=== PATIENT | female | born 1945 | race Caucasian/White ===

== ENCOUNTER 2017-01-26 18:09 | Inpatient (IN) | payer MEDICARE, OTHER ==
[~2017-01-26] VITALS: Ht 152.4 cm; Wt 139.8 kg
[2017-01-26 20:07] LABS: HEMOGLOBIN 16.7 gm/dl (12.3-15.3); RED BLOOD COUNT 6.61 M/UL (4.00-5.10); WHITE BLOOD COUNT 13.8 K/UL (4.5-11.0)
[2017-01-27] MEDS ORDERED: LASIX40 MG PO (04:04)
[2017-01-27] MEDS ORDERED: K-DUR TAB 20 M20 MEQ PO (04:05)
[2017-01-27] MEDS ORDERED: VERELAN180 MG PO (04:06)
[2017-01-27] MEDS ORDERED: VERELAN240 MG PO (04:06)
[2017-01-27] MEDS ORDERED: LANOXIN TAB0.125 MG PO (04:07)
[2017-01-27] MEDS ORDERED: ADVAIR 500-501 EACH INH (04:08)
[2017-01-27] MEDS ORDERED: PROVENTIL HFA 61 INH INH (04:09)
[2017-01-27 08:34] LABS: RED BLOOD COUNT 6.32 M/UL (4.00-5.10); WHITE BLOOD COUNT 14.3 K/UL (4.5-11.0)
[2017-01-28 04:30] LABS: HEMOGLOBIN 16.7 gm/dl (12.3-15.3); RED BLOOD COUNT 6.7 M/UL (4.00-5.10)
[2017-01-28 04:31] LABS: WHITE BLOOD COUNT 10.6 K/UL (4.5-11.0)
[2017-01-29 05:26] LABS: HEMOGLOBIN 16.9 gm/dl (12.3-15.3); RED BLOOD COUNT 6.61 M/UL (4.00-5.10); WHITE BLOOD COUNT 12.1 K/UL (4.5-11.0)
[2017-01-29 18:18] LABS: HEMOGLOBIN 16.5 gm/dl (12.3-15.3); RED BLOOD COUNT 6.55 M/UL (4.00-5.10); WHITE BLOOD COUNT 12.3 K/UL (4.5-11.0)
[2017-01-29 18:42] LABS: BUN/CREATININE RATIO 74 (0-10)
[2017-01-30 04:26] LABS: HEMOGLOBIN 15.2 gm/dl (12.3-15.3); RED BLOOD COUNT 6.25 M/UL (4.00-5.10)
[2017-01-30 04:27] LABS: WHITE BLOOD COUNT 7.9 K/UL (4.5-11.0)
[2017-01-30 04:33] LABS: BUN/CREATININE RATIO 85 (0-10)
[2017-01-30 10:36] LABS: BUN/CREATININE RATIO 80 (0-10)
[2017-01-30 10:38] LABS: HEMOGLOBIN 15.9 gm/dl (12.3-15.3); RED BLOOD COUNT 6.3 M/UL (4.00-5.10)
[2017-01-31 04:33] LABS: HEMOGLOBIN 15.6 gm/dl (12.3-15.3); RED BLOOD COUNT 6.34 M/UL (4.00-5.10)
[2017-01-31 04:36] LABS: BUN/CREATININE RATIO 82 (0-10)
[2017-02-01 04:56] LABS: HEMOGLOBIN 15.4 gm/dl (12.3-15.3); RED BLOOD COUNT 6.21 M/UL (4.00-5.10); WHITE BLOOD COUNT 14.2 K/UL (4.5-11.0)
[2017-02-01 05:08] LABS: BUN/CREATININE RATIO 115 (0-10)
== END 2017-02-01 11:00 | disposition short-term general hospital (02) | DRG 242 ==
LOC: ER1 18:09 → ZEROF 01-27 00:26 → CCU 01-27 00:26
PROVIDERS: Emergency Medicine; Hospitalist; Internal Medicine; Internal Medicine Cardiovascular Disease; Internal Medicine Hematology & Oncology; Internal Medicine Pulmonary Disease; Student in an Organized Health Care Education/Training Program; ADMIT Internal Medicine
PROC: 02HK3JZ Insertion of Pacemaker Lead into Right Ventricle, Percutaneous Approach (ICD-10-PCS; principal; 2017-01-29)
PROC: 0JH604Z Insertion of Pacemaker, Single Chamber into Chest Subcutaneous Tissue and Fascia, Open Approach (ICD-10-PCS; principal; 2017-01-29)
PROC: 0BH17EZ Insertion of Endotracheal Airway into Trachea, Via Natural or Artificial Opening (ICD-10-PCS; 2017-01-29)
PROC: 0BH17EZ Insertion of Endotracheal Airway into Trachea, Via Natural or Artificial Opening (ICD-10-PCS; 2017-01-31)
PROC: 5A1945Z Respiratory Ventilation, 24-96 Consecutive Hours (ICD-10-PCS; 2017-01-31)
DX: I13.0 Hypertensive heart and chronic kidney disease with heart failure and stage 1 through stage 4 chronic kidney disease, or unspecified chronic kidney disease (principal); G93.40 Encephalopathy, unspecified; J96.22 Acute and chronic respiratory failure with hypercapnia; J96.21 Acute and chronic respiratory failure with hypoxia; I50.33 Acute on chronic diastolic (congestive) heart failure; G93.6 Cerebral edema; N17.9 Acute kidney failure, unspecified; I44.2 Atrioventricular block, complete; E87.2 Acidosis; E87.1 Hypo-osmolality and hyponatremia; I47.1 Supraventricular tachycardia; I62.9 Nontraumatic intracranial hemorrhage, unspecified; R18.8 Other ascites; J98.11 Atelectasis; G81.92 Hemiplegia, unspecified affecting left dominant side; Z68.44 Body mass index [BMI] 60.0-69.9, adult; R53.1 Weakness; J45.909 Unspecified asthma, uncomplicated; G47.33 Obstructive sleep apnea (adult) (pediatric); I25.10 Atherosclerotic heart disease of native coronary artery without angina pectoris; E11.22 Type 2 diabetes mellitus with diabetic chronic kidney disease; E66.01 Morbid (severe) obesity due to excess calories; I48.0 Paroxysmal atrial fibrillation; J44.9 Chronic obstructive pulmonary disease, unspecified; E03.9 Hypothyroidism, unspecified; I49.5 Sick sinus syndrome; D75.1 Secondary polycythemia; T50.2X5A Adverse effect of carbonic-anhydrase inhibitors, benzothiadiazides and other diuretics, initial encounter; N18.2 Chronic kidney disease, stage 2 (mild); I27.2 Other secondary pulmonary hypertension; E87.5 Hyperkalemia; I07.1 Rheumatic tricuspid insufficiency; R26.89 Other abnormalities of gait and mobility; Z86.73 Personal history of transient ischemic attack (TIA), and cerebral infarction without residual deficits; Z79.899 Other long term (current) drug therapy; K76.0 Fatty (change of) liver, not elsewhere classified; K74.60 Unspecified cirrhosis of liver; D75.82 Heparin induced thrombocytopenia (HIT); Z88.1 Allergy status to other antibiotic agents; Z88.2 Allergy status to sulfonamides; I87.8 Other specified disorders of veins
CPT/HCPCS: ECHO; 31500; 33207; 36415; 36600; 70450; 71010; 72125; 72128; 72131; 76705; 80048; 80053; 80061; 80076; 80162; 80307; 81001; 82140; 82550; 82553; 82565; 82668; 82728; 82803; 83036; 83540; 83550; 83735; 83874; 83880; 84100; 84132; 84436; 84439; 84443; 84480; 84484; 84520; 85025; 85027; 85610; 85730; 86022; 87070; 87086; 87205; 93005; 93306; 94002; 94003; 94640; 94660; 94664; 99282; A4628; C1786; C1898; C9113; J0330; J0360; J0461; J0610; J0696; J1120; J1265; J1644; J1650; J1652; J1815; J1940; J2250; J2270; J2310; J2405; J2920; J3010; J3370; J7030; J7040; J7050; J7070